=== PATIENT | male | born 1945 | race African-American/Black ===

== ENCOUNTER 2018-04-23 20:56 | Emergency (ER) | payer MEDICARE, MEDICAID ==
[~2018-04-23] VITALS: Ht 177.8 cm; Wt 78.9 kg
[2018-04-23 22:17] VITALS: BP 123/77
== END 2018-04-23 23:57 | disposition left against medical advice (07) ==
LOC: ER 20:56
DX: R07.9 Chest pain, unspecified (principal); Z53.21 Procedure and treatment not carried out due to patient leaving prior to being seen by health care provider
CPT/HCPCS: 71045; 93005